=== PATIENT | male | born 1965 | race Caucasian/White ===

== ENCOUNTER 2018-11-17 13:02 | Emergency (ER) | payer OTHER ==
[2018-11-17 13:28] VITALS: TEMP 98.2; BMI 34.6
[2018-11-17] MEDS ORDERED: ALBUTEROL SO4 2.5/IPRATROPIUM 0.5 INH SOL 3 ML VIAL.NEB. NEB ONE ×2 (13:47→14:34)
--- NOTE | 2018-11-17 14:34 | PDOC ---
History of Present Illness - General Chief Complaint: Shortness of Breath Stated Complaint: SOB / ABD PAIN Time Seen by Provider: 11/17/18 14:20 History Source: Patient Exam Limitations: No Limitations Past History - Past Medical History Allergies/Adverse Reactions: Allergies Allergy/AdvReac Type Severity Reaction Status Date / Time No Known Drug Allergies Allergy Verified 11/17/18 14:47 peach Allergy Mild Rash Uncoded 11/17/18 14:37 Home Medications: Ambulatory Orders Aspirin [ASA -] 81 mg PO DAILY 04/23/14 Docusate Sodium [Colace -] 100 mg PO DAILY 04/23/14 Ferrous Sulfate [Feosol] 325 mg PO DAILY 04/23/14 Losartan Potassium 100 mg PO DAILY 04/23/14 metFORMIN HCL [Glucophage -] 1,000 mg PO BID 04/23/14 Albuterol 0.083% Nebulizer Melanie [Ventolin 0.083% Nebulizer Soln -] 1 neb NEB Q4H PRN #30 vial 11/17/18 Albuterol Sulfate [Proair Hfa] 8.5 gm IH ASDIR 11/17/18 Amox-Tr/K Cl [Augmentin - 875Mg Tablet] 1 tab PO BID 11/17/18 Atorvastatin Calcium 40 mg PO HS 11/17/18 Carvedilol 12.5 mg PO ASDIR 11/17/18 Carvedilol 25 mg PO AM 11/17/18 Empagliflozin [Jardiance] 10 mg PO DAILY 11/17/18 Furosemide [Lasix] 40 mg PO DAILY 11/17/18 Isosorbide Mononitrate [Imdur -] 30 mg PO HS 11/17/18 Pantoprazole Sodium [Protonix -] 40 mg PO HS 11/17/18 Prednisone [Deltasone] 40 mg PO DAILY #8 tablet 11/17/18 Rivaroxaban [Xarelto -] 20 mg PO HS 11/17/18 Asthma: Yes Cancer: No Cardiac Disorders: No CVA: No COPD: No CHF: No Dementia: No Diabetes: Yes HTN: Yes Hypercholesterolemia: Yes Seizures: No - Suicide/Smoking/Psychosocial Hx Smoking History: Current every day smoker Have you smoked in the past 12 months: Yes Number of Cigarettes Smoked Daily: 30 Information on smoking cessation initiated: No 'Breaking Loose' booklet given: 05/22/14 Hx Alcohol Use: Yes Drug/Substance Use Hx: No Substance Use Type: None Hx Substance Use Treatment: No *Physical Exam - Vital Signs Last Vital Signs Temp Pulse Resp BP Pulse Ox 98.2 F 96 H 20 141/82 98 11/17/18 13:08 11/17/18 13:08 11/17/18 13:08 11/17/18 13:08 11/17/18 13:27 - Physical Exam General Appearance: No: Apparent Distress Respiratory/Chest: positive: Wheezing (mild expiratory wheezing), Other (no JVD noted). negative: Respiratory Distress, Accessory Muscle Use Cardiovascular: positive: Regular Rhythm, Regular Rate, S1, S2. negative: Murmur Gastrointestinal/Abdominal: positive: Normal Bowel Sounds, Soft. negative: Tender, Distended, Guarding, Rebound Extremity: positive: Normal Inspection. negative: Pedal Edema, Swelling, Calf Tenderness, Erythema Integumentary: positive: Normal Color Neurologic: positive: Alert, Normal Mood/Affect Moderate Sedation - Procedure Monitoring Vital Signs: Procedure Monitoring Vital Signs Temperature 98.2 F 11/17/18 13:08 Pulse Rate 96 H 11/17/18 13:08 Respiratory Rate 20 11/17/18 13:08 Blood Pressure 141/82 11/17/18 13:08 O2 Sat by Pulse Oximetry (%) 98 11/17/18 13:27 ED Treatment Course - LABORATORY CBC & Chemistry Diagram: 11/17/18 14:55 11/17/18 14:55 - RADIOLOGY Radiology Studies Ordered: Category Date Time Status CHEST PA & LAT [RAD] Stat Radiology 11/17/18 14:33 Ordered Medical Decision Making - Medical Decision Making 53 y/o M smoker (1.5 ppd) hx of COPD, HTN, HLD, DM, afib, valve replacement ( on Xarelto), CVA presents with SOB x 3 days worse with laying down. Mentions having PND. Denies SOB with exertion. Also mentions having dry cough and some upper abdominal discomfort only when he coughs. Sleeps with 1 pillow and hasn't required more pillows. Denies fever, cp, abd pain, n/v/d. Initial concern for possible COPD exacerbation vs CHF EKG showed NSR at 93 bpm, TWI lead aVL, incomplete RBBB Patient was given duonebs x3 and steroids Labs reviewed and unremarkable CXR reviewed with Dr. Ou - wet read negative Patient feeling better on reassessment Stable for dc 11/17/18 16:30 *DC/Admit/Observation/Transfer Diagnosis at time of Disposition: COPD exacerbation - Discharge Dispostion Disposition: HOME Condition at time of disposition: Improved Decision to Admit order: No - Prescriptions Prescriptions: Albuterol 0.083% Nebulizer Melanie [Ventolin 0.083% Nebulizer Soln -] 1 neb NEB Q4H PRN #30 vial PRN Reason: Shortness Of Breath Prednisone [Deltasone] 40 mg PO DAILY #8 tablet - Referrals Referrals: Mert Hoskins [Primary Care Provider] - 2 Days - Patient Instructions Printed Discharge Instructions: DI for Chronic Obstructive Pulmonary Disease Additional Instructions: Thank you for choosing [facility]. It was a pleasure taking care of you. Likely your symptoms were due to exacerbation of your COPD Take Albuterol nebulizer as needed for shortness of breath Also take the steroids as prescribed The steroids can increase your sugar so be sure to monitor your sugar levels as well Follow-up with your PCP in 2-3 days Return to the Emergency Department if your symptoms worsen or persist or have other concerning symptoms. - Post Discharge Activity
[2018-11-17] MEDS ORDERED: methylPREDNISolone NA SUCC 125 MG/2 ML VIAL ONE (15:06)
[2018-11-17] MEDS ORDERED: methylPREDNISolone NA SUCC 125 MG/2 ML VIAL IVPB ONE (15:11)
[2018-11-17 15:25] LABS: BASO % 0.2 % (0-2.0); EOS % 5.6 % (0-4.5); HEMATOCRIT 41.9 % (35.4-49); HEMOGLOBIN 14.5 GM/dL (11.7-16.9); LYMPH % 15.4 % (8-40); MCH 32.4 pg (25.7-33.7); MCHC 34.7 g/dl (32.0-35.9); MEAN CELL VOLUME 93.4 fl (80-96); MONO % 21.2 % (3.8-10.2); NEUT % 57.6 % (42.8-82.8); PLATELET COUNT 192 K/MM3 (134-434); RBC 4.48 M/mm3 (4.00-5.60); WHITE BLOOD COUNT 5.9 K/mm3 (4.0-10.0)
[2018-11-17 15:26] LABS: N-TERMINAL BNP 92.8 pg/ml (5-125)
[2018-11-17 15:27] LABS: ANION GAP 10 MMOL/L (8-16); BLOOD UREA NITROGEN 18 mg/dL (7-18); CALCIUM 8.7 mg/dL (8.5-10.1); CHLORIDE 105 mmol/L (98-107); CO2 25 mmol/L (21-32); CREATININE 0.9 mg/dL (0.55-1.3); GLUCOSE,RANDOM 148 mg/dL (74-106); SODIUM 140 mmol/L (136-145)
[2018-11-17] MEDS: ALBUTEROL SO4 2.5/IPRATROPIUM 0.5 INH SOL 3 ML VIAL.NEB. NEB SCH ×2 (15:30→15:38)
[2018-11-17 17:19] VITALS: BP 144/70; PULSE 92
[2018-11-17 19:16] LABS: PLATELET ESTIMATE ADEQUATE
--- NOTE | 2018-11-18 10:33 | EKG ---
Test Reason : Blood Pressure : / mmHG Vent. Rate : 093 BPM Atrial Rate : 093 BPM P-R Int : 184 ms QRS Dur : 110 ms QT Int : 378 ms P-R-T Axes : 052 025 096 degrees QTc Int : 469 ms NORMAL SINUS RHYTHM INCOMPLETE RIGHT BUNDLE BRANCH BLOCK POSSIBLE INFERIOR INFARCT (CITED ON OR BEFORE 22-MAY-2014) CANNOT RULE OUT ANTERIOR INFARCT (CITED ON OR BEFORE 24-MAY-2014) ABNORMAL ECG WHEN COMPARED WITH ECG OF 24-MAY-2014 16:15, SINUS RHYTHM HAS REPLACED ATRIAL FIBRILLATION T WAVE VARIATION Confirmed by DHIRAJ CALABRESE MD ([id number]) on 11/18/2018 10:33:04 AM Referred By: Confirmed By:DHIRAJ CALABRESE MD
== END 2018-11-17 17:19 | disposition home or self-care (01) ==
LOC: JER 13:02
PROC: 3E0333Z Introduction of Anti-inflammatory into Peripheral Vein, Percutaneous Approach (ICD-10-PCS; principal; 2018-11-17)
PROC: 3E0F7GC Introduction of Other Therapeutic Substance into Respiratory Tract, Via Natural or Artificial Opening (ICD-10-PCS; 2018-11-17)
PROC: 3E0F7GC Introduction of Other Therapeutic Substance into Respiratory Tract, Via Natural or Artificial Opening (ICD-10-PCS; 2018-11-17)
DX: J44.1 Chronic obstructive pulmonary disease with (acute) exacerbation (principal); I10 Essential (primary) hypertension; E11.9 Type 2 diabetes mellitus without complications; Z79.84 Long term (current) use of oral hypoglycemic drugs; E78.5 Hyperlipidemia, unspecified; I48.91 Unspecified atrial fibrillation; Z79.01 Long term (current) use of anticoagulants; Z86.73 Personal history of transient ischemic attack (TIA), and cerebral infarction without residual deficits; Z95.2 Presence of prosthetic heart valve
CPT/HCPCS: 36415; 71046-TC-FY; 80048; 83880; 84484; 85025; 93005; 93010; 94640; 96374; 99283-25